=== PATIENT | male | born 1965 | race Caucasian/White ===

== ENCOUNTER → 2016-10-13 | Outpatient (CLI) | payer OTHER ==
[~2016-10-13] MED LIST: NOMEDS
--- NOTE | 2016-10-16 06:46 | RADIOLOGY REPORT PS360 ---
MRI-L-SPINE W/O, MRI-3D RENDERING/MYELOGRAM HISTORY: Low back pain with leg weakness BULGING LUMBAR DISC ORDERING PHYSICIAN: Sybil Gunderson APRN PATIENT AGE: 50 years COMPARISON: None TECHNIQUE: Standard multiplanar multiecho sequences are performed without contrast. 3-D MIP and myelographic images are also rendered and reviewed FINDINGS: There is normal alignment. The spinal cord ends at the L1 level. L1-L2, L2-L3, and L3-L4 have an unremarkable appearance. There is minimal bulging disc at L4-L5 without impingement. L5-S1: Minimal bulging disc with minimal central and left paracentral broad-based disc protrusion which abuts the anterior aspect of the left S1 nerve root without significant displacement. Incidental lipoma noted at L2 at 11 mm. No other significant anomalies. IMPRESSION: 1. No extruded herniated disc or canal stenosis evident. 2. Minimal bulging disc L4-L5 and L5-S1 with minimal central left paracentral disc protrusion at L5-S1 abutting the anterior aspect of the left S1 nerve root
== END ==
LOC: RAD 14:45
DX: M51.26 Other intervertebral disc displacement, lumbar region (principal)

== ENCOUNTER 2017-06-08 09:58 | Day surgery (SDC) | payer OTHER ==
[~2017-06-08] VITALS: Ht 175.3 cm; Wt 90.7 kg
[2017-06-08 10:57] VITALS: BP 155/92
[2017-06-08 11:22] VITALS: BP 155/92
[2017-06-08 11:26] VITALS: BP 166/97
--- NOTE | 2017-06-08 11:29 | Procedure Note ---
Procedure detail Date of procedure: 06/08/17 Anesthesiologist: Buzz Romero M.D. 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 Post-procedure diagnosis: Same Indications for procedure: This patient is a pleasant 51-year-old white male who we are treating for low back pain with lumbar radiculopathy symptoms. He has increasing pain over the lower lumbar spine. He has had previous lumbar epidural steroid injections with little to no relief of his symptoms. He is tender over the facet joints of L3-L4 , L4-L5 and L5-S1. He has increased pain with extension and with rotation. I believe that most of his pain is facet mediated. We will do bilateral lumbar facet joint injections/medial branch blocks of L3-L4, L4-L5 and L5-S1 today. Procedure detail: Informed consent was obtained and the risk and benefits of the procedure was when the patient. Patient was taken to the procedure room. Back was prepped using ChloraPrep. The skin and septated tissues were anesthetized using lidocaine. I placed 22-gauge spinal needles into the facet joints of L3-L4 and L4-L5 and L5-S1 bilaterally. Needle placement was confirmed with dye. After this we injected 3 mL bupivacaine 0.25 percent and Depo-Medrol 13 mg 2 each facet joint. I used a total of 80 mg Depo-Medrol for all 3 levels of L3-L4, L4-L5 and L5-S1 bilaterally. The patient tolerated the procedure well with no complications. Plan and disposition: We will follow-up with this patient in 2 weeks. We'll reevaluate his symptoms at that time. at [id number]
[2017-06-08 11:35] VITALS: BP 155/89
== END 2017-06-08 11:36 | disposition home or self-care (01) ==
LOC: PM 09:58
PROC: 3E0T3BZ Introduction of Anesthetic Agent into Peripheral Nerves and Plexi, Percutaneous Approach (ICD-10-PCS; principal; 2017-06-08)
PROC: 3E0T33Z Introduction of Anti-inflammatory into Peripheral Nerves and Plexi, Percutaneous Approach (ICD-10-PCS; 2017-06-08)
PROC: BR161ZZ Fluoroscopy of Lumbar Facet Joint(s) using Low Osmolar Contrast (ICD-10-PCS; 2017-06-08)
DX: M51.16 Intervertebral disc disorders with radiculopathy, lumbar region (principal); M12.88 Other specific arthropathies, not elsewhere classified, other specified site; M47.896 Other spondylosis, lumbar region
CPT/HCPCS: J1030; Q9966

== ENCOUNTER 2017-07-10 13:54 | Day surgery (SDC) | payer OTHER ==
[~2017-07-10] VITALS: Ht 175.3 cm; Wt 90.7 kg
[2017-07-10 14:01] VITALS: BP 138/83
[2017-07-10 14:17] VITALS: BP 138/83
[2017-07-10 14:18] VITALS: BP 169/99
--- NOTE | 2017-07-10 14:24 | Procedure Note ---
Procedure detail Date of procedure: 07/10/17 Anesthesiologist: Manuel Bay Complications: None Pre-procedure diagnosis: Degenerative disc disease lumbar spine with levels. Lumbar facet arthropathy. Spondylosis. Post-procedure diagnosis: Same. Indications for procedure: Very pleasant 51-year-old white male that returns for procedure clinic today for a second round of medial branch block L3-4, L4-5, L5-S1 bilateral lumbar spine. He responded extremely well to his first round blocks. Procedure detail: Informed consent was obtained and the risk and benefits of the procedure was explained to the patient. Patient was taken to the procedure room where noninvasive monitors were placed, including noninvasive blood pressure cuff as well as pulse oximeter. The area over the lumbar spine was cleansed using chlorhexidine as a cleansing solution. I anesthetized the skin and subcutaneous tissues with 1% Lidocaine. I placed 22-gauge spinal needles into the facet joint / medial branches of [L3-L4, L4-L5, and L5-S1] bilaterally. Needle placement was confirmed with fluoroscopy. After confirmation of needle placement, each site was injected with 1 mL of 1% lidocaine and 0.25 % Marcaine and 10 mg of Depo- Medrol. A total of 80 mg of depo medrol was used for bilateral medial branch blocks of [L3-L4, L4-L5, and L5-S1] bilaterally. Patient tolerated the procedure without difficulty. There were no complications. Plan and disposition: Patient was evaluated 10 minutes post procedure. He is doing very well. A return to see us in the pain clinic for further evaluation. He reports 90 percent reduction and pain in the lumbar spine with flexion, extension, LEFT and RIGHT rotation. at [id number]
[2017-07-10 14:41] VITALS: BP 137/82
== END 2017-07-10 14:42 | disposition home or self-care (01) ==
LOC: PM 13:54
PROC: 3E0T3BZ Introduction of Anesthetic Agent into Peripheral Nerves and Plexi, Percutaneous Approach (ICD-10-PCS; principal; 2017-07-10)
PROC: 3E0T33Z Introduction of Anti-inflammatory into Peripheral Nerves and Plexi, Percutaneous Approach (ICD-10-PCS; 2017-07-10)
PROC: BR161ZZ Fluoroscopy of Lumbar Facet Joint(s) using Low Osmolar Contrast (ICD-10-PCS; 2017-07-10)
DX: M51.36 Other intervertebral disc degeneration, lumbar region (principal); M54.06 Panniculitis affecting regions of neck and back, lumbar region; M47.9 Spondylosis, unspecified
CPT/HCPCS: J1040